=== PATIENT | male | born 1980 | race African-American/Black ===

== ENCOUNTER 2024-05-27 13:32 | Inpatient (IN) ==
--- NOTE | 2024-05-27 13:59 | Emergency Department Note ---
Impression & Plan Psychosis, Altered mental status ED Provider Note NAME: BOBBY [id number] NOCENT AGE: 44 SEX: M : 1980 ARRIVES VIA: Ambulance INFORMANT: Patient, EMS personnel, the guards from [facility] ED PROVIDER(S): Francisco Latham DO CHIEF COMPLAINT: Altered mental status HPI: The patient is a 44-year-old male who presented to the emergency department for an evaluation. The patient currently resides at [facility]. Over the course the last few weeks he has been noticed to be confused and acting out. He normally speaks Creole Maltese however when the driver manager line was used they could not understand what he was saying he kept calling out different names and then making vulgar statements. ROS: See above HPI for pertinent positives & negatives. A total of 10 systems reviewed and were otherwise negative. PAST MEDICAL HISTORY: See Below PAST SURGICAL HISTORY: See Below FAMILY HISTORY: See Below SOCIAL HISTORY: See Below HOME MEDICATIONS: See Below ALLERGIES: See Below VITALS: See Below PHYSICAL EXAMINATION: GENERAL: The patient is awake and looking around the room. EYES: The conjunctivae are clear. The pupils are round and reactive. EARS, NOSE, MOUTH AND THROAT: The nose is without any evidence of any deformity. Mucous membranes are. NECK: The neck is nontender and supple. RESPIRATORY: Normal respiratory effort is noted there is no evidence of wheezing rhonchi or rales CARDIOVASCULAR: Regular rate and rhythm noted there no murmurs rubs or gallops normal S1 normal S2. GASTROINTESTINAL: The abdomen is soft. Abdomen is nontender. MUSCULOSKELETAL/EXTREMITIES: There is no evidence of gross deformity full range of motion is noted in the hips and shoulders. SKIN: There is no obvious evidence of any rash. There are no petechiae, pallor or cyanosis noted. NEUROLOGIC: The patient is not answering questions appropriately. I am unable to assess orientation at this time. Patellar tendon reflexes were 3+ bilaterally. MEDICAL DECISION MAKING: The patient is a 44-year-old male who presented [facility] emergency department [facility] for an evaluation of altered mental status. History was difficult to obtain initially. The patient was not able to give much history at all. He does take olanzapine but is unclear if he has been compliant with his outpatient medication regimen. The patient was evaluated with the help of the information technology security manager line. The patient appears to be psychotic at this time and is not responding appropriately. I cannot assess orientation. The patient appears to be responding to internal stimuli as well. I discussed the patient's laboratory and radiographic studies [facility] Given this degree of uncertainty I feel the patient requires inpatient management and likely referral or consultation with psychiatry. The patient was treated with Haldol and Ativan. On reevaluation the patient was much more comfortable and resting comfortably. Triage Nursing notes reviewed. Prior medical records reviewed Vital Signs: reviewed and remarkable for initial tachycardia. Differential diagnosis: Infection, hypoglycemia, electrolyte abnormalities, overdose, toxicologic, cardiac sources, intracerebral event, neurologic, trauma, as well as other pathologies. ER treatment provided: See below Diagnostics interpreted by me: ECG: EKG was obtained in the emergency department. My interpretation is sinus tachycardia at [address] and T wave abnormalities were noted. No previous EKG was available. Cardiac Monitoring: An order was placed for continuous cardiac monitoring. The monitor shows a rate of 82 bpm with sinus tachycardia. Laboratory studies: As stated above and show below. Imaging studies: See below. Radiographic imaging was reviewed by myself Consultation(s): I discussed this case with Jean who is [facility] ED COURSE: Procedures: none Critical Care: I have personally spent greater than 35 minutes of critical care time in the direct management of this patient. This includes bedside care, interpretation of diagnostic studies, and testing, discussion with consultants, patient, and family members, and other required patient management activities. This 35 minutes is in excess of all separately billable procedures. Past Med/Surg History Problem List (Updated 05/27/24 @ 16:12 by Francisco Latham DO) Altered mental status (Acute) Psychosis (Acute) Social History Smoking Status: Unknown if ever smoked Communication Tools: IPad Feels Safe at Home: Declines to Answer Allergies Allergies Allergy/AdvReac Type Severity Reaction Status Date / Time No Known Allergies Allergy Unverified 05/27/24 15:15 Home Meds Home Medications Medication Instructions Recorded Confirmed olanzapine 5 mg tablet 5 mg PO HS 05/27/24 05/27/24 Results & Data (ED) Vital Signs Vital Signs - 24 hr 05/27/24 13:48 05/27/24 14:04 05/27/24 14:04 Pulse Rate 126 H 120 H Pulse Rate [Apical] Pulse Rhythm Regular Pulse Rhythm [Apical] Pulse Strength Normal Pulse Strength [Apical] Respiratory Rate 20 Respiratory Effort / Characteristics Non-Labored Respiratory Depth Normal Respiratory Pattern Regular Blood Pressure 147/121 H Blood Pressure [Right Arm] Blood Pressure Mean 129 Blood Pressure Mean [Right Arm] Blood Pressure Position Sitting Blood Pressure Position [Right Arm] Pulse Oximetry 96 Oxygen Delivery Method Room Air Room Air Sepsis Recent Fever Within 48 Hours No Sepsis New/Unexplained Change in Mental Status Yes Sepsis Action Taken by Nursing No Action Required 05/27/24 14:04 05/27/24 14:34 05/27/24 15:51 Pulse Rate 68 Pulse Rate [Apical] 121 H 92 H Pulse Rhythm Regular Pulse Rhythm [Apical] Regular Pulse Strength Pulse Strength [Apical] Normal Respiratory Rate 20 20 19 Respiratory Effort / Characteristics Non-Labored Non-Labored Respiratory Depth Normal Normal Respiratory Pattern Regular Blood Pressure Blood Pressure [Right Arm] 147/121 H 128/85 Blood Pressure Mean Blood Pressure Mean [Right Arm] 129 99 Blood Pressure Position Blood Pressure Position [Right Arm] Lying Pulse Oximetry 96 98 95 Oxygen Delivery Method Room Air Room Air Room Air Sepsis Recent Fever Within 48 Hours Sepsis New/Unexplained Change in Mental Status Sepsis Action Taken by Residential Medications Current Medication List: was personally reviewed by me Laboratory Data Attestation: I reviewed the patient's lab results. 05/27/24 14:15 05/27/24 14:15 Lab Results 05/27/24 05/27/24 05/27/24 Range/Units 13:50 14:15 14:50 WBC 8.80 (4.8-10.8) K/ul RBC 4.31 L (4.70-6.10) M/uL Hgb 13.0 L (14.0-18.0) g/dl Hct 35.9 L (42.0-52.0) % MCV 83.3 (80.0-100.0) fL MCH 30.2 (25.0-34.0) pg MCHC 36.2 H (32.0-36.0) g/dL RDW Std Deviation 34.8 L (36.4-46.3) fL RDW Coeff of Esha 11.4 L (11.5-14.5) % Plt Count 318 (130-400) K/uL MPV 9.8 (9.4-12.4) fL Immature Gran % (Auto) 0.3 % Neut % (Auto) 71.2 % Lymph % (Auto) 18.8 % [place] % (Auto) 8.4 % Eos % (Auto) 0.7 % Baso % (Auto) 0.6 % Neut # (Auto) 6.27 (1.40-6.50) K/uL Lymph # (Auto) 1.65 (1.20-3.40) K/uL [place] # (Auto) 0.74 H (0.11-0.59) K/uL Eos # (Auto) 0.06 (0.00-0.50) K/uL Baso # (Auto) 0.05 (0.00-0.20) K/uL Immature Gran # (Auto) 0.03 (0.01-0.20) K/uL PT 10.8 (9.0-12.0) Seconds INR 1.0 (0.9-1.1) APTT 25 (21-31) Seconds PTT Ratio 0.9 Sodium 139 (136-145) mmol/L Potassium 3.6 (3.5-5.1) mmol/L Chloride 103 (98-107) mmol/L Carbon Dioxide 26 (21-32) mmol/L Anion Gap 10 (3-11) BUN 17 (6-23) mg/dl Creatinine 1.32 (0.6-1.4) mg/dl Est Cr Clr Drug Dosing 73.7 ml/min eGFR 68.21 BUN/Creatinine Ratio 12.9 (10-20) Glucose 102 H (70-99(Fasting)) mg/dl POC Glucose 111 H (70-99) mg/dl Calcium 9.8 (8.6-10.3) mg/dl Magnesium 2.1 (1.7-2.4) mg/dl Total Bilirubin 2.1 H (0.2-1.0) mg/dl AST 28 (13-39) U/L ALT 29 (7-52) U/L Alkaline Phosphatase 61 (34-104) U/L Ammonia 29.0 (18-72) umol/L Total Creatine Kinase 393 H (30-223) U/L Troponin I High Sens 5.8 (0-20) pg/ml Total Protein 7.5 (6.0-8.3) gm/dl Albumin 4.6 (3.4-5.0) gm/dl Globulin 2.9 (2.5-4.0) gm/dl Albumin/Globulin Ratio 1.6 (0.9-2) Lipase 15 (11-82) U/L Ethyl Alcohol mg/dL < 10.0 (<10.0) mg/dl SARS-CoV-2, RNA, NAAT NEGATIVE (NEGATIVE) Administered Medications Discontinued Medications Haloperidol Lactate (Haloperidol Lactate 5 Mg/Ml 1 Ml Vial) 10 mg IM NOW STA Stop: 05/27/24 13:57 Last Admin: 05/27/24 14:42 Dose: 10 mg Documented By: KD Lorazepam (Lorazepam 2 Mg/1 Ml Vial) 1 mg IM NOW STA Stop: 05/27/24 13:57 Last Admin: 05/27/24 14:43 Dose: 1 mg Documented By: KD Imaging Data Attestation: I personally reviewed and interpreted this imaging study as follows: My Impression: 1 chest x-ray was obtained in the emergency department. My interpretation is no free air or definite infiltrate, final report below. CT the brain was obtained in the emergency department. My interpretation is no intracranial hemorrhage or mass effect, final report below. Radiologist's Impression: Chest X-Ray 05/27/24 13:56 XR chest 1V portable CLINICAL HISTORY: Altered mental status. COMPARISON STUDY: No previous studies for comparison. FINDINGS: The patient is mildly rotated. Lungs are clear. There is no pneumothorax or pleural effusion. Cardiac size is normal. Mediastinal contours are normal. There is no evidence for pulmonary edema. IMPRESSION: No acute cardiopulmonary findings. ACT 112: Negative or not required by law. Electronically signed by: Sergio Latham M.D. 05/27/2024 2:[address] 05/27/24 13:56 CT head/brain wo con CLINICAL HISTORY: 44 years-old Male with ans. Acutely altered mental status TECHNIQUE: Multiple axial CT images of the head were obtained without contrast. A dose lowering technique was utilized adhering to the principles of ALARA. CT DOSE: 547.75 mGy.cm COMPARISON: None. FINDINGS: No acute intracranial hemorrhage, midline shift, intracranial mass, hydrocephalus, territorial ischemia or abnormal extra-axial collection. The calvarium is intact. The paranasal sinuses, mastoid air cells, and middle ear cavities are clear. IMPRESSION: No acute intracranial abnormality. ACT 112: Negative or not required by law. The above report was generated using voice recognition software. It may contain grammatical, syntax or spelling errors. Electronically signed by: Jj Chin M.D. 05/27/2024 4:02 PM Discharge Plan Visit Data Chief Complaint: Altered Mental Status Stated Complaint: [facility] ED Provider: Francisco Latham Discharge Problem: Psychosis, Altered mental status Patient Disposition: Being Evaluated by Hospitalist Forms Stand Alone Forms: [facility] Prescriptions Prescriptions: No Action olanzapine 5 mg Tablet 5 mg PO HS Referrals Referrals: PCP,NO [Primary Care Provider] - Discharge Problem: Psychosis Qualifiers: Psychosis type: unspecified psychosis type Qualified Code(s): F29 - Unspecified psychosis not due to a substance or known physiological condition Altered mental status Qualifiers: Altered mental status type: unspecified Qualified Code(s): R41.82 - Altered mental status, unspecified
[2024-05-27 14:32] LABS: Basophils # (auto) 0.05 K/uL (0.00-0.20); Basophils % (auto) 0.6 %; Eosinophils # (auto) 0.06 K/uL (0.00-0.50); Eosinophils % (auto) 0.7 %; Hematocrit (blood only) 35.9 % (42.0-52.0); Immature Granulocytes # (auto) 0.03 K/uL (0.01-0.20); Immature Granulocytes % (auto) 0.3 %; Lymphocytes # (auto) 1.65 K/uL (1.20-3.40); Lymphocytes % (auto) 18.8 %; Mean Corpuscular Hemoglobin 30.2 pg (25.0-34.0); Mean Corpuscular Hgb Conc 36.2 g/dL (32.0-36.0); Mean Corpuscular Volume 83.3 fL (80.0-100.0); Mean Platelet Volume 9.8 fL (9.4-12.4); Monocytes # (auto) 0.74 K/uL (0.11-0.59); Monocytes % (auto) 8.4 %; Neutrophils # (auto) 6.27 K/uL (1.40-6.50); Neutrophils % (auto) 71.2 %; Platelet Count 318 K/uL (130-400); RDW Coefficient of Variation 11.4 % (11.5-14.5); RDW Standard Deviation 34.8 fL (36.4-46.3); Red Blood Count 4.31 M/uL (4.70-6.10)
--- NOTE | 2024-05-27 14:32 | XRay Report ---
XR chest 1V portable CLINICAL HISTORY: Altered mental status. COMPARISON STUDY: No previous studies for comparison. FINDINGS: The patient is mildly rotated. Lungs are clear. There is no pneumothorax or pleural effusio n. Cardiac size is normal. Mediastinal contours are normal. There is no evidence for pulmonary edema. IMPRESSION: No acute cardiopulmonary findings. ACT 112: Negative or not required by law. Electronically signed by: Sergio Latham M.D. 05/27/2024 2:30 PM
[2024-05-27] MEDS: HALOPERIDOL LACTATE 5 MG/ML 1 ML VIAL IM STA (14:42)
[2024-05-27] MEDS: LORazepam 2 MG/1 ML VIAL IM STA (14:43)
[2024-05-27 14:48] LABS: Albumin Globulin Ratio 1.6 (0.9-2); Albumin Level 4.6 gm/dl (3.4-5.0); BUN Creatinine Ratio 12.9 (10-20); Bilirubin,Total 2.1 mg/dl (0.2-1.0); Calcium 9.8 mg/dl (8.6-10.3); Creatinine Clr Calc Pharmacy 73.7 ml/min; Globulin 2.9 gm/dl (2.5-4.0); Magnesium 2.1 mg/dl (1.7-2.4); Potassium 3.6 mmol/L (3.5-5.1); Total Protein 7.5 gm/dl (6.0-8.3)
[2024-05-27 14:55] LABS: Troponin I High Sensitivity 5.8 pg/ml (0-20)
[2024-05-27 15:09] LABS: Partial Thromboplastin Ratio 0.9; Partial Thromboplastin Time 25 Seconds (21-31); Prothrombin Time 10.8 Seconds (9.0-12.0)
--- NOTE | 2024-05-27 16:04 | CT Scan Report ---
CT head/brain wo con CLINICAL HISTORY: 44 years-old Male with ans. Acutely altered mental status TECHNIQUE: Multiple axial CT images of the head were obtained without contrast. A dose lowering tech nique was utilized adhering to the principles of ALARA. CT DOSE: 547.75 mGy.cm COMPARISON: None. FINDINGS: No acute intracranial hemorrhage, midline shift, intracranial mass, hydrocephalus, territorial ischem ia or abnormal extra-axial collection. The calvarium is intact. The paranasal sinuses, mastoid air cells, and middle ear cavities are clear . IMPRESSION: No acute intracranial abnormality. ACT 112: Negative or not required by law. The above report was generated using voice recognition software. It may contain grammatical, syntax o r spelling errors. Electronically signed by: Jj Chin M.D. 05/27/2024 4:02 PM
--- NOTE | 2024-05-27 16:36 | History & Physical Report ---
Date of Service May 27, 2024 Assessment & Plan (1) Altered mental status: (2) Psychosis: Plan: Patient is 44 year old male with PMH "unspecified mental disorder" presents to ER from [facility] for c/o agitation, AMS, hallucinating. In ER noted to have sinus tachycardia on EKG and monitor initially and was reportedly agitated. In ER given 10 mg IM Haldol, Ativan 1 mg IM and since pt sinus rhythm and is sleeping in bed CT head: no acute intracranial abnormality CXR: no infiltrate Urine drug screen negative. Negative ETOH level, Negative Tylenol and Salicylates Suspect underlying psych disorder with acute psychosis Will plan to continue home olanzapine and haloperidol prn agitation Psychiatry consult (3) Elevated CPK: Plan: T bili: 2.1 with other normal LFTs. No baseline CK: 393 Gentle IVF Repeat CK, CMP in am DVT Prophylaxis Lovenox SQ Admit med tele Currently at [facility] Pt was seen and care coordinated with Dr Burk. See addendum I spent a total of 68 minutes reviewing notes, outpatient records, labs, medication, coordinating, documenting and providing care for this patient excluding time spent in the performance of separately billed services. History of Present Illness Chief Complaint: AMS Primary Care Provider: NO PCP Patient is 44 year old male with PMH "unspecified mental disorder" presents to ER from [facility] for c/o agitation and altered mental status. History obtained from [facility] and ER staff as patient is currently sedated after receiving medications in ER. It is reported that patient is Creole speaking, and can speak some Guinean. Spoke to staff at [facility] on the phone who report patient been there since 09/2023 and is being treated by psych team there for unspecified mental disorder and he came to their facility already taking olanzapine 5mg daily. Per staff at [facility] 2 weeks ago patient seemed to be staring blankly in the distance. He then started to threaten people that he would hurt them or kill them if he got out of his cell. States 2 days ago was saying vulgar things to staff and trying to expose himself to staff. The past week, he has been refusing meds at times, they are unsure if he is taking his olanzapine. Today he was found in his room with feces, urine and food everywhere. States he hadn't been eating past day but guard believes he ate breakfast this morning. He had been noting to be hallucinating. Today in ER it was attempted to use carbonation equipment tender service however it was reported that his speaking was incomprehensible and he was saying vulgar things. In ER was reported to be agitated and was given Haldol 10mg and Ativan 1mg IM and is currently sleeping in bed. Per phone conversation with [facility], their records indicated pt has no history cigarettes, ETOH or drug use. No reported surgical history Unsure on FH Allergies Allergy/AdvReac Type Severity Reaction Status Date / Time No Known Allergies Allergy Unverified 05/27/24 15:15 Home Medications Medication Instructions Recorded Confirmed Type olanzapine 5 mg tablet 5 mg PO HS 05/27/24 05/27/24 History Past Med/Surg History Problem List Elevated CPK Altered mental status (Acute) Psychosis (Acute) Social History Smoking Status: Unknown if ever smoked Communication Tools: IPad Feels Safe at Home: Declines to Answer Review of Systems Review of Systems: All systems reviewed & are unremarkable except as noted in HPI & below Physical Exam Physical Exam: PE per Dr Burk Results & Data Results & Data Vital Signs (Past 12 Hours) Vital Signs Pulse Pulse Resp BP BP Pulse Ox O2 Del Method 05/27/24 15:51 92 H 19 128/85 95 Room Air 05/27/24 14:34 68 20 98 Room Air 05/27/24 14:04 121 H 20 147/121 H 96 Room Air 05/27/24 14:04 Room Air 05/27/24 14:04 120 H 20 147/121 H 96 Room Air 05/27/24 13:48 126 H Laboratory Results Short CBC 05/27/24 Range/Units 14:15 WBC 8.80 (4.8-10.8) K/ul Hgb 13.0 L (14.0-18.0) g/dl Hct 35.9 L (42.0-52.0) % Plt Count 318 (130-400) K/uL BMP 05/27/24 14:15 Sodium 139 Potassium 3.6 Chloride 103 Carbon Dioxide 26 BUN 17 Creatinine 1.32 Glucose 102 H Calcium 9.8 Cardiac Enzymes 05/27/24 Range/Units 14:15 Total Creatine Kinase 393 H (30-223) U/L Liver Function 05/27/24 Range/Units 14:15 Total Bilirubin 2.1 H (0.2-1.0) mg/dl AST 28 (13-39) U/L ALT 29 (7-52) U/L Alkaline Phosphatase 61 (34-104) U/L Albumin 4.6 (3.4-5.0) gm/dl Urine 05/27/24 Range/Units 16:36 Urine Color Dark Yellow Urine Appearance Clear (Clear) Urine pH 5.5 (4.5-7.5) Ur Specific [place] 1.019 (1.000-1.030) Urine Protein Trace H (Negative) Urine Glucose (UA) Negative (Negative) Diagnostic Findings Chest X-Ray 05/27/24 13:56 XR chest 1V portable CLINICAL HISTORY: Altered mental status. COMPARISON STUDY: No previous studies for comparison. FINDINGS: The patient is mildly rotated. Lungs are clear. There is no pneumothorax or pleural effusion. Cardiac size is normal. Mediastinal contours are normal. There is no evidence for pulmonary edema. IMPRESSION: No acute cardiopulmonary findings. ACT 112: Negative or not required by law. Electronically signed by: Sergio Latham M.D. 05/27/2024 2:[address] 05/27/24 13:56 CT head/brain wo con CLINICAL HISTORY: 44 years-old Male with ans. Acutely altered mental status TECHNIQUE: Multiple axial CT images of the head were obtained without contrast. A dose lowering technique was utilized adhering to the principles of ALARA. CT DOSE: 547.75 mGy.cm COMPARISON: None. FINDINGS: No acute intracranial hemorrhage, midline shift, intracranial mass, hydrocephalus, territorial ischemia or abnormal extra-axial collection. The calvarium is intact. The paranasal sinuses, mastoid air cells, and middle ear cavities are clear. IMPRESSION: No acute intracranial abnormality. ACT 112: Negative or not required by law. The above report was generated using voice recognition software. It may contain grammatical, syntax or spelling errors. Electronically signed by: Jj Chin M.D. 05/27/2024 4:02 PM Supervising Physician Co-Signing Physician Notes 44 yo M from [facility] w/ unknown PMH, appears to be on olanzapine CANDY COUNTER CLERK was brought in due to complaints of acting out and altered mentation for about 2 weeks CANDY COUNTER CLERK, worsening. Pt not able to give much history, ED tried to utilize medical policy specialist line, but pt was not communicating appropriately but he was noted to be using curse words. He was noted to be psychotic per ED eval and was given 10 mg im haldol. Pt did calm down after that. Per guard at the bedside, he has generally been eating, sleeping, waking up with agitation and the cycle has continued for las several days. Per them, last time the patient had a meal was today morning's breakfast. Acute psychosis: c/w home olanzipine, prn haldo im. psychiatry consult. follow UA and Utox. CXR/CT Head and labs wnl. EKG daily for QTc monitoring. f/u TSH. Elevated CPK: likely 2/2 freq agitation while in [facility]. CPK in AM, trend until normal or downtrending. c/w NSS at 100 ml/hr. On Exam: GENERAL: NAD, RA, non responsive to verbal stimuli, mildly resisted abdominal and eye exams. HEENT: couldn't examine pallor /icterus/eye (resisted eye opening). NECK: No JVD, no neck masses. HEART: S1 and S2 heard. Regular rate and rhythm. No murmur, no gallop. HR in 80-90s RESPIRATORY SYSTEM: Normal AP diameter. No accessory muscle use. No wheezing, no crackles. ABDOMEN: Soft, bowel sounds present, no grimacing on deep exam on abdomen, no distention. CENTRAL NERVOUS SYSTEM: No facial droop. Speech couldn't be assessed as he was not speaking. noted moving extremities. EXTREMITIES: No edema, no erythema seen. I have seen and examined the patient and have discussed the case with the provider above. I agree with the assessment and plan as stated. Time spent: 20 min (1) Altered mental status Altered mental status type: unspecified Qualified Code(s): R41.82 - Altered mental status, unspecified (2) Psychosis Psychosis type: unspecified psychosis type Qualified Code(s): F29 - Unspecified psychosis not due to a substance or known physiological condition
--- NOTE | 2024-05-27 16:45 | Electrocardiogram Report ---
Test Reason : Blood Pressure : */* mmHG Vent. Rate : 127 BPM Atrial Rate : 127 BPM P-R Int : 130 ms QRS Dur : 74 ms QT Int : 318 ms P-R-T Axes : 75 68 82 degrees QTcB Int : 462 ms Sinus tachycardia Poor R wave progression, consider anterior LA vs. lead placement vs. LVH T wave abnormality, consider anterolateral ischemia Abnormal ECG No previous ECGs available Confirmed by Rohan Seaman ([id number]) on 05/27/2024 4:44:56 PM Referred By: NO PCP Confirmed By: Rohan Seaman
[2024-05-27 16:48] LABS: Acetaminophen < 3 ug/ml (10-30); Salicylate < 3.0 mg/dl (3.0-30)
[2024-05-27 16:56] LABS: Appearance Urine Clear (Clear); Bacteria Urine Automated None Seen (None Seen); Bilirubin Urine Negative (Negative); Blood Urine Negative (Negative); Color Urine Dark Yellow; Epithelial Cell Urine Auto 0-2 /hpf (0-2); Glucose Urine UA Negative (Negative); Ketones Urine 1+ (Negative); Leukocyte Esterase Urine Negative (Negative); Nitrite Urine Negative (Negative); Protein Urine Trace (Negative); RBC Urine Automated 0-2 /hpf (0-2); Specific Gravity Urine 1.019 (1.000-1.030); Urobilinogen Urine Negative (Negative); WBC Urine Automated 0-5 /hpf (0-5); pH Urine 5.5 (4.5-7.5)
[2024-05-27] MEDS: SODIUM CHLORIDE 0.9% 1,000 ML IV SCH (17:19)
[2024-05-27 17:24] LABS: Amphetamines+Metham, Urine Neg (Neg); Barbiturates, Urine Neg (Neg); Benzodiazepine, Urine Neg (Neg); Cocaine, Urine Neg (Neg); Fentanyl, Urine Neg (Neg); MDMA (Ecstacy), Urine Neg (Neg); Marijuana, Urine Neg (Neg); Methadone, Urine Neg (Neg); Opiate, Urine Neg (Neg); Phencyclidine, Urine Neg (Neg)
[2024-05-27 17:50] LABS: Thyroid Stimulating Hormone 2.947 uIu/ml (0.300-4.500)
[2024-05-27] MEDS ORDERED: ACETAMINOPHEN 325 MG TAB PO PRN (19:47)
[2024-05-27] MEDS ORDERED: POLYETHYLENE (MIRALAX) 17 GM PACK PO PRN (19:47)
[2024-05-27] MEDS ORDERED: MAGNESIUM HYDROXIDE SUSP 30 ML UDC PO PRN (19:47)
[2024-05-27] MEDS: ENOXAPARIN INJ 40 MG/0.4 ML SYR SQ SCH (20:45)
[2024-05-27] MEDS: OLANZapine 5 MG TABLET PO SCH (21:45)
[2024-05-28 08:05] LABS: Hematocrit (blood only) 35.5 % (42.0-52.0); Hemoglobin 12.3 g/dl (14.0-18.0); Mean Corpuscular Hemoglobin 29.7 pg (25.0-34.0); Mean Corpuscular Hgb Conc 34.6 g/dL (32.0-36.0); Mean Corpuscular Volume 85.7 fL (80.0-100.0); Platelet Count 291 K/uL (130-400); RDW Coefficient of Variation 11.5 % (11.5-14.5); RDW Standard Deviation 36.2 fL (36.4-46.3); Red Blood Count 4.14 M/uL (4.70-6.10); White Blood Count 8.31 K/ul (4.8-10.8)
[2024-05-28 08:13] LABS: Albumin Globulin Ratio 1.4 (0.9-2); Albumin Level 4.1 gm/dl (3.4-5.0); BUN Creatinine Ratio 11.5 (10-20); Bilirubin,Total 1.3 mg/dl (0.2-1.0); Calcium 8.6 mg/dl (8.6-10.3); Creatinine Clr Calc Pharmacy 93.6 ml/min; Globulin 2.9 gm/dl (2.5-4.0); Potassium 3.8 mmol/L (3.5-5.1)
--- NOTE | 2024-05-28 12:59 | Psychiatric Consultation ---
Date of Consultation May 28, 2024 Impression / Recommendations Impression 44 yo man currently detained at a [facility] immigration and customs enforcement facility with a history of psychosis on prescribed low dose olanzapine admitted medically for increased disorganization and aggression in the context of recent medication refusal. Psychiatry consulted for recommendations for agitation. 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 Trauma response possible but unlikely to cause this level of psychosis and impairment. Substance use highly unlikely given that he's been in a secure facility. CK elevated but no other signs of EPS and hasn't been taking olanzapine recently so this is unlikely. Given report of active symptoms of psychosis even on low dose of olanzapine, recommend dose increase. He will not be a candidate for inpatient psychiatric care as he is in an [facility] residential facility and any forensic/psychiatric referrals would be at the discretion of the [facility] facility.Do recommend he return there on suicide precautions given reports by guards that he frequently reports SI (none vocalized today). Acute risk of self-harm is moderate and elevated given psychosis and reported history of statements of SI so recommend suicide precautions and q15 minute checks as well as presence of guards at bedside. Need for these measures can be re-evaluated when Rivas is better able to participate in assessment and to speak to any risk factors/mitigating factors/presence of SI. Overall, I spent a total of 60 minutes with this case including review of chart records, review of labwork, review of EKG QTc, direct evaluation of the patient at bedside, counseling the patient, discussion of the patient with the hospitalist provider, discussion with the psychiatric liason during clinical rounds and documentation in the electronic health record. (1) Psychosis: Psychosis type: unspecified psychosis type Qualified Code(s): F29 - Unspecified psychosis not due to a substance or known physiological condition (2) Altered mental status: Altered mental status type: unspecified Qualified Code(s): R41.82 - Altered mental status, unspecified Plan -Increase olanzapine to 10mg HS po (can switch to ODT if concern he is cheeking the medication) -Would have olanzapine 2.5mg BID po prn for psychosis/agitation -Recommend suicide precautions and q15 minutes checks with guards to remain at bedside, option to add additional 1-on-1 at hospitalist's discretion if needed in the future. -For behavioral emergency: olanzapine 10 mg IM x 1 (DO NOT exceed 10mg per 24 hours, check EKG if IM dose required, NEVER co-administer with IM or IV benzodiazepines). Psych History Identifying Data 44 yo man currently detained at a [facility] immigration and customs enforcement facility with a history of psychosis on prescribed low dose olanzapine admitted medically for increased disorganization and aggression in the context of recent medication refusal. Psychiatry consulted for recommendations for agitation. Chief Complaint "Bin Laden". History of Present Illness Rivas has been evaluated with use of radiologist chief of breast imaging line due to primary language of Creole but has still struggled to vocalize recent symptoms and noted to be "incomprehensible and he was saying vulgar things" per hospitalist H&P and ED documentation. Per hospitalist H&P from 05/27/2024: "It is reported that patient is Creole speaking, and can speak some French. Spoke to staff at [facility] on the phone who report patient been there since 09/2023 and is being treated by psych team there for unspecified mental disorder and he came to their facility already taking olanzapine 5mg daily. Per staff at [facility] 2 weeks ago patient seemed to be staring blankly in the distance. He then started to threaten people that he would hurt them or kill them if he got out of his cell. States 2 days ago was saying vulgar things to staff and trying to expose himself to staff. The past week, he has been refusing meds at times, they are unsure if he is taking his olanzapine. Today he was found in his room with feces, urine and food everywhere. States he hadn't been eating past day but guard believes he ate breakfast this morning. He had been noting to be hallucinating." He required IM antipsychotic medication in the ED. Last evening he took his olanzapine 5mg po. Today he is observed lying in bed, handcuffed, with his eyes closed and speaking incoherently to himself. Clearly responding to active internal stimuli. When I attempt to speak with him and to get radiologist chief of breast imaging services on the ipad he shuts his eyes tightly and does not open them. He will not engage verbally except that he shouts out "bin laden" and then refuses to speak further. No evidence of EPS on visual exam. Guards at bedside, who have known him for about 6 months provide further collateral. They report he talks to himself throughout the day since he came to the [facility] facility. The patient's primary language is Creole, but he understands French and will communicate in French when necessary. When compliant with his medications, he appears more oriented and has a better understanding of his surroundings, able to express basic needs like thirst or hunger in French. He has a history of aggression, even when taking his medications, with his aggression seeming to be directed more towards males than females. In recent days this has been worse with biting and spitting. The patient has frequently made statements about wanting to or hurt himself and has mentioned hearing voices. On occasion, he has also expressed a desire to hurt others. His behavior tends to worsen at night, as he sleeps during the day and becomes more active around 7 or 8 PM. Guards describe him as a "loose tomlin" who can suddenly snap and become aggressive. They have wondered about possible trauma of the of his girlfriend as sometimes he seems to reference something about this. Allergies Allergy/AdvReac Type Severity Reaction Status Date / Time No Known Allergies Allergy Unverified 05/27/24 15:15 Home Medications Medication Instructions Recorded Confirmed Type olanzapine 5 mg tablet 5 mg PO HS 05/27/24 05/27/24 History Patient History Social History Smoking Status: Unknown if ever smoked Preferred Language: Ivorian Creole Communication Ability: Impaired Communication Tools: IPad Drag Sawyer Required: Yes Current Living Situation: Other Current Living Situation Comment: [facility] Feels Safe at Home: Yes Assistive Devices: None Physical Exam Psychiatric: Orientation: alert and + guarded Apperance: appropriately dressed and + disheveled Eye Contact: + poor eye contact Motor Behavior: no abnormal motor movements Speech: + abnormal rate/rhythm/volume of speech (fast and mumbled, then mute) Affect: + labile affect, + irritable affect and + angry affect Mood: + angry mood Thought Process: + thought blocking, + looseness of associations and + word salad Thought Content: + delusions Hallucinations: + auditory hallucinations (clearly responding to internal sti muli) Cognition: language grossly intact; + attention not intact Insight: + severely impaired insight Judgment: + severely impaired judgement Vital Signs (Past 24 Hours): Last Vital Signs Temp 36.4 C L 05/28/24 11:29 Pulse 88 05/28/24 11:29 Resp 16 05/28/24 11:29 BP 148/96 H 05/28/24 11:29 Pulse Ox 98 05/28/24 11:29 O2 Del Method Room Air 05/28/24 11:29 Results & Data (PSY) Medications Administered Enoxaparin Sodium (Enoxaparin Inj 40 Mg/0.4 Ml Syr) 40 mg SQ Q24H JOHNATHON Stop: 06/26/24 19:59 Last Admin: 05/27/24 20:45 Dose: Not Given Documented By: DERIK Olanzapine (Olanzapine 5 Mg Tablet) 5 mg PO HS JOHNATHON Stop: 06/26/24 20:59 Last Admin: 05/27/24 21:45 Dose: 5 mg Documented By: DERIK Coding Level of Care Code 38352 IN/OBS CONSULT LVL 4,60M Diagnoses Psychosis F29 Psychosis type: unspecified psychosis type Altered mental status R41.82 Altered mental status type: unspecified
--- NOTE | 2024-05-28 14:17 | Electrocardiogram Report ---
Test Reason : Blood Pressure : */* mmHG Vent. Rate : 72 BPM Atrial Rate : 72 BPM P-R Int : 164 ms QRS Dur : 84 ms QT Int : 434 ms P-R-T Axes : 69 68 41 degrees QTcB Int : 475 ms Normal sinus rhythm Poor R wave progression, consider anterior HI vs. lead placement vs. LVH Minor Anterior ST elevation, most consistent with repolarization variant Abnormal ECG When compared with ECG of 27-May-2024 14:44, Vent. rate has decreased by 55 bpm T-wave inversion in Anterior leads no longer present Confirmed by Rohan Seaman ([id number]) on 05/28/2024 2:17:12 PM Referred By: NO PCP Confirmed By: Rohan Seaman
[2024-05-28] MEDS: INFLUENZA VACC TS2024-25(6m+)/PF (IIV3) 0.5mL Syr IM ONE (16:17)
--- NOTE | 2024-05-28 17:59 | Hospitalist Progress Note ---
Date of Service May 28, 2024 Assessment & Plan (1) Psychosis: (2) Altered mental status: (3) Elevated CPK: Plan Patient is a 44 year old male with PMHx significant for "unspecified mental disorder" presenting to the ER from [facility] for c/o agitation, AMS, hallucinations. Altered mental status Psychosis In ER noted to have sinus tachycardia on EKG and monitor initially and was reportedly agitated. In ER given 10 mg IM Haldol, Ativan 1 mg IM and since pt sinus rhythm CT head: no acute intracranial abnormality CXR: no infiltrate Urine drug screen negative. 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 -increase olanzapine to 10mg HS po -olanzapine 2.5mg BID po prn for psychosis/agitation -For behavioral emergency would use: olanzapine 10mg IM. -Recommend suicide precautions and q15 minutes checks with guards to remain at bedside, option to add additional 1-on-1 at hospitalist's discretion if needed in the future." continue to monitor Elevated CPK CK: 393-->767 Gentle IVF- 1 additional bag on 05/28/24 Repeat CK in AM Diet: regular, safe tray DVT Prophylaxis:Lovenox SQ Dispo: Return to [facility] once medically stable Admission and Anticipated Discharge Date Admission Date: May 27, 2024 Results & Data Results & Data Vital Signs (Past 12 Hours) Vital Signs Temp Pulse Pulse Resp BP Pulse Ox O2 Del Method 05/28/24 11:29 36.4 C L 88 16 148/96 H 98 Room Air 05/28/24 09:09 72 05/28/24 08:46 Room Air 05/28/24 07:37 36.8 C 67 18 157/98 H 97 Room Air 05/28/24 02:25 36.4 C L 63 18 103/63 97 Room Air (1) Psychosis Psychosis type: unspecified psychosis type Qualified Code(s): F29 - Unspecified psychosis not due to a substance or known physiological condition (2) Altered mental status Altered mental status type: unspecified Qualified Code(s): R41.82 - Altered mental status, unspecified
[2024-05-28] MEDS: SODIUM CHLORIDE 0.9% 500 ML IV SCH (18:05)
[2024-05-28] MEDS: OLANZapine 10 MG TAB PO SCH (20:45)
[2024-05-29] MEDS: HALOPERIDOL LACTATE 5 MG/ML 1 ML VIAL IM PRN (00:53)
[2024-05-29 06:56] LABS: Basophils # (auto) 0.06 K/uL (0.00-0.20); Basophils % (auto) 0.6 %; Eosinophils # (auto) 0.17 K/uL (0.00-0.50); Eosinophils % (auto) 1.6 %; Hematocrit (blood only) 39.6 % (42.0-52.0); Hemoglobin 13.5 g/dl (14.0-18.0); Immature Granulocytes # (auto) 0.04 K/uL (0.01-0.20); Immature Granulocytes % (auto) 0.4 %; Lymphocytes # (auto) 1.78 K/uL (1.20-3.40); Lymphocytes % (auto) 17.1 %; Mean Corpuscular Hemoglobin 29.7 pg (25.0-34.0); Mean Corpuscular Hgb Conc 34.1 g/dL (32.0-36.0); Mean Corpuscular Volume 87.2 fL (80.0-100.0); Mean Platelet Volume 9.6 fL (9.4-12.4); Monocytes # (auto) 0.68 K/uL (0.11-0.59); Monocytes % (auto) 6.6 %; Neutrophils # (auto) 7.65 K/uL (1.40-6.50); Neutrophils % (auto) 73.7 %; Platelet Count 325 K/uL (130-400); RDW Coefficient of Variation 11.7 % (11.5-14.5); RDW Standard Deviation 37.2 fL (36.4-46.3); Red Blood Count 4.54 M/uL (4.70-6.10); White Blood Count 10.38 K/ul (4.8-10.8)
[2024-05-29 07:15] LABS: Albumin Globulin Ratio 1.3 (0.9-2); Albumin Level 4.1 gm/dl (3.4-5.0); BUN Creatinine Ratio 8.1 (10-20); Bilirubin,Total 1.3 mg/dl (0.2-1.0); Calcium 9.1 mg/dl (8.6-10.3); Creatinine Clr Calc Pharmacy 79.1 ml/min; Globulin 3.1 gm/dl (2.5-4.0); Magnesium 2.4 mg/dl (1.7-2.4); Phosphorus 3.4 mg/dl (2.5-4.9); Potassium 3.7 mmol/L (3.5-5.1); Total Protein 7.2 gm/dl (6.0-8.3)
--- NOTE | 2024-05-29 13:27 | Hospitalist Progress Note ---
Date of Service May 29, 2024 Assessment & Plan (1) Psychosis: (2) Altered mental status: (3) Elevated CPK: Plan Patient is a 44 year old male with PMHx significant for "unspecified mental disorder" presenting to the ER from [facility] for c/o agitation, AMS, hallucinations. Altered mental status Psychosis In ER noted to have sinus tachycardia on EKG and monitor initially and was reportedly agitated. In ER given 10 mg IM Haldol, Ativan 1 mg IM and since pt sinus rhythm CT head: no acute intracranial abnormality CXR: no infiltrate Urine drug screen negative. 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 -increase olanzapine to 10mg HS po -olanzapine 2.5mg BID po prn for psychosis/agitation -For behavioral emergency would use: olanzapine 10mg IM. -Recommend suicide precautions and q15 minutes checks with guards to remain at bedside, option to add additional 1-on-1 at hospitalist's discretion if needed in the future." olanzapine at nighttime switched to ODT formulation given patient's refusal to take medication by spitting it out continue to monitor Elevated CPK CK: 393-->767 Gentle IVF- 1 additional bag on 05/28/24 Repeat CK in AM Diet: regular, safe tray DVT Prophylaxis:Lovenox SQ Dispo: Return to [facility] once medically stable Admission and Anticipated Discharge Date Admission Date: May 27, 2024 Subjective patient was seen in the a.m. Guards and sitter at bedside Was more talkative and answering questions, more alert Had refuses Zyprexa overnight Per nursing he is drinking more and they are requesting boost for the left levered per patient preference to help with him taking his medications Review of Systems Review of Systems: All systems reviewed & are unremarkable except as noted in Subjective Physical Exam Physical Exam: General: laying in bed, No acute distress Psych: Patient cooperative today HEENT: NC/AT CV: RRR Resp: Breath sounds clear bilaterally, no increased effort of breathing Abdomen: Soft, nontender to palpation Extremities: No edema in lower extremities bilaterally. Results & Data Results & Data Vital Signs (Past 12 Hours) Vital Signs Temp Pulse Pulse Resp BP BP Pulse Ox 05/29/24 11:12 36.3 C L 81 20 142/91 H 98 05/29/24 07:49 36.1 C L 73 18 134/86 100 05/29/24 07:36 68 05/29/24 01:43 36.8 C 82 20 145/86 H 96 O2 Del Method 05/29/24 11:12 Room Air 05/29/24 07:49 Room Air 05/29/24 07:36 05/29/24 01:43 Room Air (1) Psychosis Psychosis type: unspecified psychosis type Qualified Code(s): F29 - Unspecified psychosis not due to a substance or known physiological condition (2) Altered mental status Altered mental status type: unspecified Qualified Code(s): R41.82 - Altered mental status, unspecified
[2024-05-29] MEDS: OLANZAPINE 2.5 MG TAB PO PRN (18:15)
[2024-05-30 07:06] LABS: Basophils # (auto) 0.04 K/uL (0.00-0.20); Basophils % (auto) 0.5 %; Eosinophils # (auto) 0.11 K/uL (0.00-0.50); Eosinophils % (auto) 1.5 %; Hematocrit (blood only) 37.1 % (42.0-52.0); Hemoglobin 13.3 g/dl (14.0-18.0); Immature Granulocytes # (auto) 0.02 K/uL (0.01-0.20); Immature Granulocytes % (auto) 0.3 %; Lymphocytes # (auto) 1.94 K/uL (1.20-3.40); Lymphocytes % (auto) 26.1 %; Mean Corpuscular Hemoglobin 30.1 pg (25.0-34.0); Mean Corpuscular Hgb Conc 35.8 g/dL (32.0-36.0); Mean Corpuscular Volume 83.9 fL (80.0-100.0); Mean Platelet Volume 9.7 fL (9.4-12.4); Monocytes # (auto) 0.58 K/uL (0.11-0.59); Monocytes % (auto) 7.8 %; Neutrophils # (auto) 4.74 K/uL (1.40-6.50); Neutrophils % (auto) 63.8 %; Platelet Count 367 K/uL (130-400); RDW Coefficient of Variation 11.5 % (11.5-14.5); Red Blood Count 4.42 M/uL (4.70-6.10); White Blood Count 7.43 K/ul (4.8-10.8)
[2024-05-30 07:35] LABS: Albumin Globulin Ratio 1.3 (0.9-2); BUN Creatinine Ratio 8.3 (10-20); Bilirubin,Total 1.1 mg/dl (0.2-1.0); Creatinine Clr Calc Pharmacy 90.1 ml/min; Globulin 3.1 gm/dl (2.5-4.0); Magnesium 2.2 mg/dl (1.7-2.4); Phosphorus 3.3 mg/dl (2.5-4.9); Potassium 3.4 mmol/L (3.5-5.1); Total Protein 7.1 gm/dl (6.0-8.3)
[2024-05-30] MEDS: POTASSIUM CHLORIDE CRTAB 20 MEQ TABCR PO STA (10:15)
[2024-05-30] MEDS: POTASSIUM CHLORIDE / WTR 10 MEQ/100 ML PLCT IV ONE (12:13)
--- NOTE | 2024-05-30 12:15 | Hospitalist Progress Note ---
Date of Service May 30, 2024 Assessment & Plan (1) Psychosis: (2) Altered mental status: (3) Elevated CPK: Plan Patient is a 44 year old male with PMHx significant for "unspecified mental disorder" presenting to the ER from [facility] for c/o agitation, AMS, hallucinations. Altered mental status Psychosis In ER noted to have sinus tachycardia on EKG and monitor initially and was reportedly agitated. In ER given 10 mg IM Haldol, Ativan 1 mg IM and since pt sinus rhythm CT head: no acute intracranial abnormality CXR: no infiltrate Urine drug screen negative. 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 -increase olanzapine to 10mg HS po -olanzapine 2.5mg BID po prn for psychosis/agitation -For behavioral emergency would use: olanzapine 10mg IM. -Recommend suicide precautions and q15 minutes checks with guards to remain at bedside, option to add additional 1-on-1 at hospitalist's discretion if needed in the future." olanzapine at nighttime switched to ODT formulation given patient's refusal to take medication by spitting it out continue to monitor 05/30/24- Case discussed with psychiatrist Dr. Singletary who recommended the following: "Risperidone 2mg PO HS Risperidone 1mg PO QAM Haldol 5mg Q8hr PO/IM for agitation Diphenhydramine 50mg Q8hr PO/IM for agitation, EPS Lorazepam 1mg Q8hr PO/IM for agitation, anxiety D/c olanzapine" continue to monitor Elevated CPK CK: 393-->767--->668---492 Gentle IVF- 1 additional bag on 05/28/24 Repeat CK in AM Diet: regular, safe tray DVT Prophylaxis:Lovenox SQ Dispo: Return to [facility] once medically stable Admission and Anticipated Discharge Date Admission Date: May 27, 2024 Subjective patient was seen in the a.m. Guards and sitter at bedside did receive the p.o. Zyprexa overnight However per nursing he has been very agitated today requiring IM doses of Haldol and additionally IM Zyprexa On exam patient stated not to touch him that he was fine Was mumbling to himself Per guards he has been taking nutritional supplements. Review of Systems Review of Systems: All systems reviewed & are unremarkable except as noted in Subjective Physical Exam Physical Exam: General: laying in bed, No acute distress Psych: Patient Visibly responding to internal stimuli HEENT: NC/AT CV: RRR Resp: Breath sounds clear bilaterally, no increased effort of breathing Abdomen: Soft, nontender to palpation Extremities: No edema in lower extremities bilaterally. Results & Data Results & Data Vital Signs (Past 12 Hours) Vital Signs Temp Pulse Pulse Resp BP Pulse Ox O2 Del Method 05/30/24 08:05 95 H 17 129/90 97 Room Air 05/30/24 07:12 105 H 05/30/24 03:20 36.6 C 88 16 125/87 97 Room Air 05/30/24 00:17 36.7 C 111 H 16 136/80 97 Room Air (1) Psychosis Psychosis type: unspecified psychosis type Qualified Code(s): F29 - Unspecified psychosis not due to a substance or known physiological condition (2) Altered mental status Altered mental status type: unspecified Qualified Code(s): R41.82 - Altered mental status, unspecified
[2024-05-30] MEDS: OLANZapine 10 MG/2.1 ML SDV IM STA (15:38)
[2024-05-30] MEDS ORDERED: diphenhydrAMINE 50 MG/ML VIAL IM PRN (16:51)
[2024-05-30] MEDS ORDERED: LORazepam 2 MG/1 ML VIAL IM PRN (16:52)
[2024-05-30] MEDS: risperiDONE 2 MG TABLET PO SCH (20:03)
[2024-05-31 06:17] LABS: Basophils # (auto) 0.03 K/uL (0.00-0.20); Basophils % (auto) 0.4 %; Eosinophils # (auto) 0.18 K/uL (0.00-0.50); Eosinophils % (auto) 2.3 %; Hematocrit (blood only) 38.2 % (42.0-52.0); Hemoglobin 13.1 g/dl (14.0-18.0); Immature Granulocytes # (auto) 0.03 K/uL (0.01-0.20); Immature Granulocytes % (auto) 0.4 %; Lymphocytes # (auto) 1.95 K/uL (1.20-3.40); Lymphocytes % (auto) 24.9 %; Mean Corpuscular Hemoglobin 29.8 pg (25.0-34.0); Mean Corpuscular Hgb Conc 34.3 g/dL (32.0-36.0); Mean Corpuscular Volume 86.8 fL (80.0-100.0); Mean Platelet Volume 9.8 fL (9.4-12.4); Monocytes # (auto) 0.69 K/uL (0.11-0.59); Monocytes % (auto) 8.8 %; Neutrophils # (auto) 4.96 K/uL (1.40-6.50); Neutrophils % (auto) 63.2 %; Platelet Count 346 K/uL (130-400); RDW Coefficient of Variation 11.4 % (11.5-14.5); RDW Standard Deviation 36.7 fL (36.4-46.3); White Blood Count 7.84 K/ul (4.8-10.8)
[2024-05-31 06:47] LABS: Albumin Globulin Ratio 1.3 (0.9-2); BUN Creatinine Ratio 7.8 (10-20); Calcium 9.2 mg/dl (8.6-10.3); Creatinine Clr Calc Pharmacy 94.5 ml/min; Magnesium 2.2 mg/dl (1.7-2.4); Potassium 3.3 mmol/L (3.5-5.1)
[2024-05-31] MEDS: POTASSIUM PHOS 3 MMOL/1 ML INFUSION IV STA (08:48)
--- NOTE | 2024-05-31 09:23 | Electrocardiogram Report ---
Test Reason : Blood Pressure : */* mmHG Vent. Rate : 96 BPM Atrial Rate : 96 BPM P-R Int : 146 ms QRS Dur : 84 ms QT Int : 338 ms P-R-T Axes : 74 59 -45 degrees QTcB Int : 427 ms Poor data quality, interpretation may be adversely affected Normal sinus rhythm Possible Left atrial enlargement T wave abnormality, consider inferior ischemia T wave abnormality, consider anterolateral ischemia Abnormal ECG When compared with ECG of 28-May-2024 05:32, ST no longer elevated in Anterolateral leads T wave inversion now evident in Inferior leads T wave inversion now evident in Lateral leads Confirmed by Yeison Walters ([id number]) on 05/31/2024 9:23:12 AM Referred By: NO PCP Confirmed By: Yeison Walters
[2024-05-31] MEDS: POTASSIUM CHLORIDE / WTR 10 MEQ/100 ML PLCT IV SCH (09:47)
[2024-05-31] MEDS: risperiDONE 1 MG TABLET PO SCH (09:47)
--- NOTE | 2024-05-31 10:38 | Hospitalist Progress Note ---
Date of Service May 31, 2024 Assessment & Plan (1) Psychosis: (2) Altered mental status: (3) Elevated CPK: Plan Patient is a 44 year old male with PMHx significant for "unspecified mental disorder" presenting to the ER from [facility] for c/o agitation, AMS, hallucinations. Altered mental status Psychosis In ER noted to have sinus tachycardia on EKG and monitor initially and was reportedly agitated. In ER given 10 mg IM Haldol, Ativan 1 mg IM and since pt sinus rhythm CT head: no acute intracranial abnormality CXR: no infiltrate Urine drug screen negative. 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 -increase olanzapine to 10mg HS po -olanzapine 2.5mg BID po prn for psychosis/agitation -For behavioral emergency would use: olanzapine 10mg IM. -Recommend suicide precautions and q15 minutes checks with guards to remain at bedside, option to add additional 1-on-1 at hospitalist's discretion if needed in the future." olanzapine at nighttime switched to ODT formulation given patient's refusal to take medication by spitting it out continue to monitor 05/30/24- Case discussed with psychiatrist Dr. Singletary who recommended the following: "Risperidone 2mg PO HS Risperidone 1mg PO QAM Haldol 5mg Q8hr PO/IM for agitation Diphenhydramine 50mg Q8hr PO/IM for agitation, EPS Lorazepam 1mg Q8hr PO/IM for agitation, anxiety D/c olanzapine" 05/31/24- patient with improved psych status today. Awaiting further recs continue to monitor Elevated CPK CK: 393-->767--->668---492--->625 Gentle IVF- 1 additional bag on 05/28/24 Repeat CK in AM Diet: regular, safe tray DVT Prophylaxis:Lovenox SQ Dispo: Return to [facility] once medically stable Admission and Anticipated Discharge Date Admission Date: May 27, 2024 Subjective Patient was seen in the a.m. Guards and sitter at bedside Did receive the p.o. risperidone overnight per nursing improved and not as agitated this morning. Asking to be fed for breakfast. Patient nonverbal once more today and not responding to questioning Review of Systems Review of Systems: All systems reviewed & are unremarkable except as noted in Subjective Physical Exam Physical Exam: General: laying in bed, No acute distress Psych: Patient nonverbal today, intentionally not responding to questioning HEENT: NC/AT CV: RRR Resp: no increased effort of breathing Abdomen: Soft, nontender to palpation Extremities: No edema in lower extremities bilaterally. Results & Data Results & Data Vital Signs (Past 12 Hours) Vital Signs Temp Pulse Pulse Resp BP Pulse Ox O2 Del Method 05/31/24 07:57 36.6 C 79 17 142/92 H 98 Room Air 05/31/24 07:00 95 H 05/31/24 03:42 36.4 C L 80 16 166/95 H 97 Room Air (1) Psychosis Psychosis type: unspecified psychosis type Qualified Code(s): F29 - Unspecified psychosis not due to a substance or known physiological condition (2) Altered mental status Altered mental status type: unspecified Qualified Code(s): R41.82 - Altered m ental status, unspecified
--- NOTE | 2024-05-31 14:23 | Psychiatric Progress Note ---
Date of Service May 31, 2024 Impression / Recommendations Impression 44 yo man currently detained at a [facility] immigration and customs enforcement facility with a history of psychosis on prescribed low dose olanzapine admitted medically for increased disorganization and aggression in the context of recent medication refusal. Psychiatry consulted for recommendations for agitation. 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 He will not be a candidate for inpatient psychiatric care as he is in an ICE correction facility and any forensic/psychiatric referrals would be at the discretion of the [facility] facility.Do recommend he return there on suicide precautions given reports by guards that he frequently reports SI (none vocalized today). A: Patient presented limited engagement in the interview today. Has been adherent to his scheduled Risperidone and presented no behavioral problems recently. Able to respond to my questions with clear speech and appears more organized. Tolerating Risperidone well with no signs of EPS. If he continues to demonstrate stable behaviors, no indication of safety concerns (threats, SI), continued improvement in thought disorganization with linear thought process, no objective signs of AVH he is likely appropriate for discharge back to his home facility. Continue current medications and treatment plan. Overall, I spent a total of 35 minutes with this case including review of chart records, nursing report, review of lab work, direct evaluation of the patient at bedside, counseling the patient, discussion of the patient with the hospitalist provider, discussion with the psychiatric liaison during clinical rounds, and documentation in the electronic health record. (1) Psychosis: (2) Altered mental status: Plan Risperidone 2mg PO HS Risperidone 1mg PO QAM Haldol 5mg Q8hr PO/IM for agitation Diphenhydramine 50mg Q8hr PO/IM for agitation, EPS Lorazepam 1mg Q8hr PO/IM for agitation, anxiety Interval History Identifying Information 44 yo man currently detained at a [facility] immigration and customs enforcement facility with a history of psychosis on prescribed low dose olanzapine admitted medically for increased disorganization and aggression in the context of recent medication refusal. Psychiatry consulted for recommendations for evaluation and management of agitation. Chief Complaint "I am ." Subjective Subjective Pt is seen sleeping. Difficult to arouse and keeps going back to sleep. He reports feeling he is "" and does not clarify further. Speech is clear.. No EPS identified or noted by sitters and nursing staff. No behavioral problems reported today and patient appears calm. Has been adherent to his scheduled medications and slept well. Physical Exam Mental Examination unable to assess thought content, hallucinations, insight, judgement due to poor engagement in interview Appearance: Unkempt Eye Contact: No Eye Contact Motor Behavior: Unremarkable Speech: Soft Mood: Euthymic Affect: Congruent Thought Process: Intact and Linear Vital Signs (Past 24 Hours) Last Vital Signs Temp 36.6 C 05/31/24 07:57 Pulse 79 05/31/24 07:57 Resp 17 05/31/24 07:57 BP 142/92 H 05/31/24 07:57 Pulse Ox 98 05/31/24 07:57 O2 Del Method Room Air 05/31/24 07:57 Results & Data ([facility]) Laboratory Results Laboratory Results - last 24 hr 05/31/24 05:16 WBC 7.84 RBC 4.40 L Hgb 13.1 L Hct 38.2 L MCV 86.8 MCH 29.8 MCHC 34.3 RDW Std Deviation 36.7 RDW Coeff of Esha 11.4 L Plt Count 346 MPV 9.8 Immature Gran % (Auto) 0.4 Neut % (Auto) 63.2 Lymph % (Auto) 24.9 Gillespie % (Auto) 8.8 Eos % (Auto) 2.3 Baso % (Auto) 0.4 Neut # (Auto) 4.96 Lymph # (Auto) 1.95 Gillespie # (Auto) 0.69 H Eos # (Auto) 0.18 Baso # (Auto) 0.03 Immature Gran # (Auto) 0.03 Sodium 140 Potassium 3.3 L Chloride 103 Carbon Dioxide 31 Anion Gap 6 BUN 8 Creatinine 1.03 Est Cr Clr Drug Dosing 94.5 eGFR 91.86 BUN/Creatinine Ratio 7.8 L Glucose 101 H Calcium 9.2 Phosphorus 4.0 Magnesium 2.2 Total Bilirubin 1.0 AST 30 ALT 23 Alkaline Phosphatase 54 Total Creatine Kinase 625 H Total Protein 7.0 Albumin 4.0 Globulin 3.0 Albumin/Globulin Ratio 1.3 Current Inpatient Medications Current Inpatient Medications: Current Inpatient Medications Acetaminophen (Acetaminophen 325 Mg Tab) 650 mg PO Q4H PRN PRN Reason: Pain or Fever Stop: 06/26/24 19:46 Diphenhydramine HCl (Diphenhydramine 50 Mg/Ml Vial) 50 mg IM Q8H PRN PRN Reason: Agitation/EPS Stop: 06/29/24 16:50 Enoxaparin Sodium (Enoxaparin Inj 40 Mg/0.4 Ml Syr) 40 mg SQ Q24H JOHNATHON Stop: 06/26/24 19:59 Last Admin: 05/30/24 20:03 Dose: 40 mg Haloperidol Lactate (Haloperidol Lactate 5 Mg/Ml 1 Ml Vial) 5 mg IM Q8H PRN PRN Reason: Agitation Stop: 06/26/24 16:35 Last Admin: 05/31/24 01:08 Dose: 5 mg Lorazepam (Lorazepam 2 Mg/1 Ml Vial) 1 mg IM Q8H PRN PRN Reason: agitation/anxiety Stop: 06/29/24 16:59 Magnesium Hydroxide (Magnesium Hydroxide Susp 30 Ml Udc) 30 ml PO Q12H PRN PRN Reason: Constipation Stop: 06/26/24 19:46 Polyethylene Glycol (Polyethylene (Miralax) 17 Gm Pack) 17 gm PO DAILY PRN PRN Reason: Constipation Stop: 06/26/24 19:46 Risperidone (Risperidone 1 Mg Tablet) 1 mg PO QAM JOHNATHON Stop: 06/30/24 08:59 Last Admin: 05/31/24 09:47 Dose: 1 mg Risperidone (Risperidone 2 Mg Tablet) 2 mg PO HS JOHNATHON Stop: 06/29/24 20:59 Last Admin: 05/30/24 20:03 Dose: 2 mg (1) Psychosis Psychosis type: unspecified psychosis type Qualified Code(s): F29 - Unspecified psychosis not due to a substance or known physiological condition (2) Altered mental status Altered mental status type: unspecified Qualified Code(s): R41.82 - Altered mental status, unspecified
[2024-06-01 07:55] VITALS: RESP 18; TEMP 97.9; O2SAT 95
[2024-06-01 08:14] LABS: Hematocrit (blood only) 37.5 % (42.0-52.0); Hemoglobin 12.8 g/dl (14.0-18.0); Mean Corpuscular Hemoglobin 29.3 pg (25.0-34.0); Mean Corpuscular Hgb Conc 34.1 g/dL (32.0-36.0); Mean Corpuscular Volume 85.8 fL (80.0-100.0); Mean Platelet Volume 9.2 fL (9.4-12.4); Platelet Count 333 K/uL (130-400); RDW Coefficient of Variation 11.4 % (11.5-14.5); RDW Standard Deviation 35.9 fL (36.4-46.3); Red Blood Count 4.37 M/uL (4.70-6.10); White Blood Count 7.86 K/ul (4.8-10.8)
[2024-06-01 08:28] LABS: Albumin Globulin Ratio 1.3 (0.9-2); Albumin Level 3.8 gm/dl (3.4-5.0); BUN Creatinine Ratio 10.1 (10-20); Bilirubin,Total 0.6 mg/dl (0.2-1.0); Calcium 9.2 mg/dl (8.6-10.3); Creatinine Clr Calc Pharmacy 98.3 ml/min; Globulin 2.9 gm/dl (2.5-4.0); Magnesium 2.1 mg/dl (1.7-2.4); Phosphorus 3.1 mg/dl (2.5-4.9); Potassium 3.6 mmol/L (3.5-5.1); Total Protein 6.7 gm/dl (6.0-8.3)
[2024-06-01] MEDS: DOCUSATE SODIUM/SENNA 50/8.6MG TAB PO SCH (09:32)
[2024-06-01] MEDS: POLYETHYLENE (MIRALAX) 17 GM PACK PO SCH (09:33)
--- NOTE | 2024-06-01 10:20 | Discharge Summary ---
Discharge Summary Date of Service June 01, 2024 Principal Dx & Hospital Course #1 = Principal Diagnosis (1) Psychosis: (2) Altered mental status: (3) Elevated CPK: Plan Patient is a 44 year old male with PMHx significant for "unspecified mental disorder" presenting to the ER from [facility] for c/o agitation, AMS, hallucinations. Altered mental status Psychosis In ER noted to have sinus tachycardia on EKG and monitor initially and was reportedly agitated. In ER given 10 mg IM Haldol, Ativan 1 mg IM and since pt sinus rhythm CT head: no acute intracranial abnormality CXR: no infiltrate Urine drug screen negative. Negative ETOH level, Negative Tylenol and Salicylates Suspect underlying psych disorder with acute psychosis Psychiatry consult, appreciate recs. 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 -increase olanzapine to 10mg HS po -olanzapine 2.5mg BID po prn for psychosis/agitation -For behavioral emergency would use: olanzapine 10mg IM. -Recommend suicide precautions and q15 minutes checks with guards to remain at bedside, option to add additional 1-on-1 at hospitalist's discretion if needed in the future." However, pt had persistent agitation on the above regimen. The following regimen was then recommended by Dr Gary Singletary with noted stability: 05/30/24- "Risperidone 2mg PO HS Risperidone 1mg PO QAM Haldol 5mg Q8hr PO/IM for agitation Diphenhydramine 50mg Q8hr PO/IM for agitation, EPS Lorazepam 1mg Q8hr PO/IM for agitation, anxiety" "He will not be a candidate for inpatient psychiatric care as he is in an ICE custodial facility and any forensic/psychiatric referrals would be at the discretion of the [facility] facility.Do recommend he return there on suicide precautions given reports by guards that he frequently reports SI (none vocalized today)." Close Psychiatry and PCP follow up after discharge. Elevated CPK CK: 300-700 range Gentle IVF Remained stable Notes For Next Care Provider Please ensure close follow up with Psychiatry Medication Changes From Visit Per Psychiatry: -Discontinue olanzapine -Risperidone 1mg PO QAM -Risperidone 2mg PO HS -Haldol 5mg Q8hr PO/IM for agitation -Diphenhydramine 50mg Q8hr PO/IM for agitation, EPS -Lorazepam 1mg Q8hr PO/IM for agitation, anxiety Return to facility on suicide precautions Daily stool softener and miralax until bowel movement Admission HPI Per Admitting Provider Patient is 44 year old male with PMH "unspecified mental disorder" presents to ER from [facility] for c/o agitation and altered mental status. History obtained from [facility] and ER staff as patient is currently sedated after receiving medications in ER. It is reported that patient is Creole speaking, and can speak some Pashto. Spoke to staff at [facility] on the phone who report patient been there since 09/2023 and is being treated by psych team there for unspecified mental disorder and he came to their facility already taking olanzapine 5mg daily. Per staff at [facility] 2 weeks ago patient seemed to be staring blankly in the distance. He then started to threaten people that he would hurt them or kill them if he got out of his cell. States 2 days ago was saying vulgar things to staff and trying to expose himself to staff. The past week, he has been refusing meds at times, they are unsure if he is taking his olanzapine. Today he was found in his room with feces, urine and food everywhere. States he hadn't been eating past day but guard believes he ate breakfast this morning. He had been noting to be hallucinating. Today in ER it was attempted to use certified court/medical interpreter service however it was reported that his speaking was incomprehensible and he was saying vulgar things. In ER was reported to be agitated and was given Haldol 10mg and Ativan 1mg IM and is currently sleeping in bed. Per phone conversation with [facility], their records indicated pt has no history cigarettes, ETOH or drug use. No reported surgical history Unsure on Admission Exam Per Admitting Provider GENERAL: NAD, RA, non responsive to verbal stimuli, mildly resisted abdominal and eye exams. HEENT: couldn't examine pallor /icterus/eye (resisted eye opening). NECK: No JVD, no neck masses. HEART: S1 and S2 heard. Regular rate and rhythm. No murmur, no gallop. HR in 80-90s RESPIRATORY SYSTEM: Normal AP diameter. No accessory muscle use. No wheezing, no crackles. ABDOMEN: Soft, bowel sounds present, no grimacing on deep exam on abdomen, no distention. CENTRAL NERVOUS SYSTEM: No facial droop. Speech couldn't be assessed as he was not speaking. noted moving extremities. EXTREMITIES: No edema, no erythema seen. Discharge Exam General: laying in bed, No acute distress Psych: Patient nonverbal today, intentionally not responding to questioning HEENT: NC/AT CV: RRR Resp: no increased effort of breathing Abdomen: Soft, nontender to palpation Extremities: No edema in lower extremities bilaterally. Updated Medication List Medication Instructions Recorded Confirmed Type olanzapine 5 mg tablet 5 mg PO HS 05/27/24 05/27/24 History polyethylene glycol 3350 17 17 g PO DAILY #119 grams 06/01/24 Rx gram/dose oral powder (Miralax) risperidone 1 mg tablet 1 mg PO QAM #30 tabs 06/01/24 Rx risperidone 2 mg tablet 2 mg PO HS #30 tabs 06/01/24 Rx sennosides 8.6 mg-docusate sodium 1 tab PO QAM #30 tabs 06/01/24 Rx 50 mg tablet (Senokot-S) Hospital Stay Data Consultations 05/27/24 16:11 ED Decision to Admit Stat 05/27/24 16:18 Consult Psychiatry Routine Diagnostic Imagining Performed 05/27/24 13:56 CT head/brain wo con Stat Chest X-Ray 05/27/24 13:56 XR chest 1V portable CLINICAL HISTORY: Altered mental status. COMPARISON STUDY: No previous studies for comparison. FINDINGS: The patient is mildly rotated. Lungs are clear. There is no pneumothorax or pleural effusion. Cardiac size is normal. Mediastinal contours are normal. There is no evidence for pulmonary edema. IMPRESSION: No acute cardiopulmonary findings. ACT 112: Negative or not required by law. Electronically signed by: Sergio Latham M.D. 05/27/2024 2:[address] 05/27/24 13:56 CT head/brain wo con CLINICAL HISTORY: 44 years-old Male with ans. Acutely altered mental status TECHNIQUE: Multiple axial CT images of the head were obtained without contrast. A dose lowering technique was utilized adhering to the principles of ALARA. CT DOSE: 547.75 mGy.cm COMPARISON: None. FINDINGS: No acute intracranial hemorrhage, midline shift, intracranial mass, hydrocephalus, territorial ischemia or abnormal extra-axial collection. The calvarium is intact. The paranasal sinuses, mastoid air cells, and middle ear cavities are clear. IMPRESSION: No acute intracranial abnormality. ACT 112: Negative or not required by law. The above report was generated using voice recognition software. It may contain grammatical, syntax or spelling errors. Electronically signed by: Jj Chin M.D. 05/27/2024 4:02 PM Discharge Instructions Given to Patient (Per Discharging Provider) Rivas, You were seen by psychiatry and they made changes to your mediations. Please continue with the risperidone as prescribed. Please also continue with the stool softener and miralax daily until you have a bowel movement. Please keep close follow up with your primary care provider after discharge. Please do not hesitate to come back to the emergency room if your symptoms worsen or return. It was a pleasure taking care of you while you were here. Total Time Total Time Spent Total Time Spent (In Minutes): 65
[2024-06-01 14:01] VITALS: BP 145/86; PULSE 95
--- NOTE | 2024-06-02 06:11 | Electrocardiogram Report ---
Test Reason : Blood Pressure : */* mmHG Vent. Rate : 95 BPM Atrial Rate : 95 BPM P-R Int : 166 ms QRS Dur : 80 ms QT Int : 332 ms P-R-T Axes : 57 40 -28 degrees QTcB Int : 417 ms Normal sinus rhythm Minimal voltage criteria for LVH, may be normal variant Nonspecific T wave abnormality Abnormal ECG When compared with ECG of 30-May-2024 16:04, No significant change was found Confirmed by Yeison Walters ([id number]) on 06/02/2024 6:11:19 AM Referred By: NO PCP Confirmed By: Yeison Walters
== END 2024-06-01 16:07 | DRG 885 ==
LOC: ED 13:32 → 2N 16:50 → SUATTDRO 16:50 → 2N 18:23